=== PATIENT | male | born 1970 | race Hispanic/Latino ===

== ENCOUNTER 2018-10-12 12:43 | Emergency (ER) | payer SELFPAY ==
[~2018-10-12 12:43] MED LIST: ISOVUE-370 76%-LOCM 1 ML ONE
--- NOTE | 2018-10-12 14:30 | RAD ---
ACUTE ABDOMINAL SERIES: 10/12/18 HISTORY: Constipation. COMPARISON: Chest x-ray on 05/18/06. CHEST X-RAY: Again noted is mild elevation of the right hemidiaphragm. There is mild volume loss at the right lung base. The lungs are otherwise clear. Cardiac silhouette and pulmonary vasculature are within normal limits. TWO VIEWS OF THE ABDOMEN: No free intraperitoneal gas is seen beneath the hemidiaphragms. Bowel gas pattern is nonspecific. No suspicious calcifications are seen. The osseous structures have a normal appearance. IMPRESSION: 1. Nonspecific bowel gas pattern. 2. Elevation right hemidiaphragm with mild volume loss right lung base. POS: [facility]
[2018-10-12 15:55] LABS: #Basophils 0.1 thou/uL (0.0-0.2); #Eosinphils 0.1 thou/uL (0.0-0.7); #Monocytes 0.9 thou/uL (0.11-0.59); #Neutrophils 10.9 thou/uL (1.40-6.50); %Basophils 0.5 % (0.0-1.0); %Eosinophils 0.6 % (0.0-10.0); %Neutrophils 72.9 % (42.0-75.0); Hemoglobin 15.8 g/dL (14.0-18.0); Mean Corpuscular HGB CONC 34.1 g/dL (32.0-36.0); Mean Corpuscular Hemoglobin 29.8 pg (27.0-31.0); Mean Corpuscular Volume 87.4 fL (78.0-98.0); Mean Platelet Volume 8.4 fL (7.4-10.4); Platelet Count 275 thou/uL (130-400); RBC Distribution Width 11.9 % (11.5-14.5); Red Blood Cell (RBC) Count 5.29 mill/uL (4.70-6.10); White Blood Cell (WBC) Count 14.9 thou/uL (4.8-10.8)
[2018-10-12] MEDS ORDERED: Magnesium Citrate 300 ML BOT ONE (15:59)
[2018-10-12 16:18] LABS: ALT (SGPT) 24 U/L (8-55); AST (SGOT) 19 U/L (5-34); Albumin 4.2 g/dL (3.5-5.0); Alkaline Phosphatase 90 U/L (40-150); Anion Gap 14 mmol/L (10-20); BUN (Urea Nitrogen) 16 mg/dL (8.9-20.6); Bilirubin, Total 0.5 mg/dL (0.2-1.2); Calc. Creatinine Clearance 0 mL/min (70-130); Calcium 9.4 mg/dL (7.8-10.44); Carbon Dioxide 24 mmol/L (22-29); Chloride 105 mmol/L (98-107); Estimated GFR-MDRD Greater than 90; Globulin 3.4 g/dL (2.4-3.5); Glucose 99 mg/dL (70-105); Lipase 23 U/L (8-78); Potassium 3.7 mmol/L (3.5-5.1); Protein, Total 7.6 g/dL (6.0-8.3); Sodium 139 mmol/L (136-145)
[2018-10-12] MEDS ORDERED: Famotidine/PF 20 mg/2ml Vial ONE ×2 (16:36→16:50)
[2018-10-12] MEDS ORDERED: diphenhydrAMINE 50 MG/ML VIAL ONE (16:39)
[2018-10-12] MEDS ORDERED: methylPREDNISolone Sod Succ/PF 125 MG/2 ML VIAL ONE (16:39)
--- NOTE | 2018-10-12 19:44 | CT ---
CT ABDOMEN AND PELVIS WITH IV CONTRAST: 10/12/18 HISTORY: Small bowel obstruction. Patient presents with constipation since Thursday. Patient on multiple oral medications. COMPARISON: None available. FINDINGS: There is mild bibasilar atelectasis. The liver, spleen, pancreas, bilateral adrenal glands , kidneys, abdominal aorta, and urinary bladder demonstrate a normal CT appearance. Loops of small bowel are normal in caliber. Small amount of retained fecal material is seen in the co jayce. The appendix is visualized and normal in caliber. There is no free fluid, fluid collection, or lymphadenopathy seen in the abdomen or pelvis. No suspicious lytic or sclerotic osseous lesions are identified. IMPRESSION: No acute findings are seen in the abdomen or pelvis. POS: [facility]
== END 2018-10-12 19:26 | disposition home or self-care (01) ==
LOC: ERS 12:43
DX: K59.00 Constipation, unspecified (principal); I10 Essential (primary) hypertension; Z79.899 Other long term (current) drug therapy
CPT/HCPCS: 36415; 74022; 74177; 80053; 83690; 85025; 96361; 96374; 96375; J1200; J2930; Q9966; S0028